=== PATIENT | female | born 1965 | race Caucasian/White ===

== ENCOUNTER → 2023-07-25 08:28 | Outpatient (REF) | payer OTHER, SELFPAY | LOC: HWWDC 08:28 | PROVIDERS: ATTENDING PHYSICIAN Obstetrics & Gynecology Gynecology | DX: Z12.31 Encounter for screening mammogram for malignant neoplasm of breast (principal) | CPT/HCPCS: 77063; 77067 ==

== ENCOUNTER 2024-02-10 11:15 | Emergency (ER) | payer OTHER, SELFPAY ==
[2024-02-10 11:37] VITALS: BP 148/68; BMI 24.9
[2024-02-10 12:00] VITALS: BP 128/65
[2024-02-10 12:02] LABS: % Basophils 0.3 % (0-2); % Eosinophils 1.1 % (0-6); % Immature Granulocytes 0.5 % (0-0.5); % Lymphocytes 16.7 % (20.5-51.1); % Monocytes 5.3 % (1.7-9.3); % Neutrophils 76.1 % (42.2-75.2); Absolute Lymphocytes 0.6 10^3/uL (1.2-3.4); Absolute Monocytes 0.2 10^3/uL (0.1-0.6); Absolute Neutrophils 2.9 10^3/uL (1.4-6.5); Hematocrit 33.5 % (37.0-47.0); Hemoglobin 11.1 g/dL (12.0-16.0); Mean Corp Hgb Conc. 33.1 g/dL (33.0-37.0); Mean Corpuscular Hgb 27.1 pg (27.0-31.0); Mean Corpuscular Volume 81.9 fL (81.0-99.0); Mean Platelet Volume 9.4 fL (7.4-10.4); Nucleated Red Blood Cells % 0 %; Platelet Count 136 10^3/uL (130-400); Red Blood Cell Count 4.09 10^6/uL (4.20-5.40); Red Cell Dist. Width 13.8 % (11.5-14.5); White Blood Cell Count 3.8 10^3/uL (4.8-10.8)
[2024-02-10 12:09] LABS: COVID-19 Antigen Negative (Negative)
[2024-02-10 12:38] LABS: ALT (SGPT) 23 U/L (0-35); AST (SGOT) 31 U/L (14-36); Albumin 4.1 g/dl (3.5-5.0); Alkaline Phosphatase 83 U/L (38-126); Blood Urea Nitrogen 14 mg/dl (7-17); Calcium 9.1 mg/dl (8.4-10.2); Carbon Dioxide 26 mmol/L (22-30); Chloride 96 mmol/L (98-107); Estimated Creatinine Clearance 91 ml/min; Glucose 110 mg/dl (70-99); Potassium 3.9 mmol/L (3.5-5.1); Sodium 137 mmol/L (135-145); Total Bilirubin 0.6 mg/dl (0.2-1.3); Total Protein 6.5 g/dl (6.3-8.2); eGFR > 60.00
[2024-02-10] MEDS: TYLENOL 1000 MG PO (13:05)
[2024-02-10] MEDS: ROCEPHIN 1000 MG IV (13:05)
--- NOTE | 2024-02-10 13:08 | ED.GENMED ---
History of Present Illness
General
Chief Complaint: Breathing Problem
Time Seen by Provider: 02/10/24 11:44
History of Present Illness
History of Present Illness:
58-year-old female with no significant past medical history presents to the emergency department for evaluation of intractable cough and persistent fever for the past 4 to 5 days. Went to urgent care earlier in the day where she was noted to have
bilateral pneumonia and directed to come to the emergency department. She reports shortness of breath but this is not particular worse with exertion. No chest pain or vomiting.
Past History
Past History
ED Past Medical History: Other (Noncontributory)
ED Past Surgical History: Other (Noncontributory)
Patient has exhibited threatening behavior?: No
Social History
Tobacco: Non-smoker
Alcohol: None
Drug: None
Personal:
Living: with family
Family History
Family History: Other (Mother in her 50s no known cause no autopsy performed); Negative Early CAD
Review of Systems
Review of Systems
Allergies reviewed?: Yes
All Other Systems: ROS reviewed and negative except as documented in HPI and ROS
Phy Exam
Physical Exam
Physical Exam:
GEN: Well appearing, NAD, WDWN
HEENT: Oral mucosa moist, no scleral icterus
Cardiac: Tachycardic, regular
Lung: Mildly tachypneic, otherwise clear lungs
MSK: No gross deformity or injuries
Skin: Good color, no pallor or jaundice, no rashes
Neuro: AO x3, moves all extremities freely
Psych: Calm, cooperative
Scores
Heart Failure Risk
Heart Failure Risk Score: Not Applicable
Course
Orders/Labs/Results
Orders:
Orders
02/10/24 11:41
COVID-19 Antigen Urgent
Source: Nasal Swab
Complete Blood Count/With Diff Urgent
Comprehensive Metabolic Panel Urgent
Lactic Acid Q4H
Comment: ON ICE, CANCEL 2ND ORDER IF FIRST LACTIC ACID LEVEL <2
Influenza A+B Rapid Molecular Urgent
ELLA Source: Nasal Swab
Specimen Description:
02/10/24 12:55
Acetaminophen [Tylenol] 1,000 mg PO NOW STA
CefTRIAXone [Rocephin] 1,000 mg IV NOW STA
Abnormal Lab Results
02/10/24
11:41
WBC 3.8 L 10^3/uL
(4.8-10.8)
RBC 4.09 L 10^6/uL
(4.20-5.40)
Hgb 11.1 L g/dL
(12.0-16.0)
Hct 33.5 L %
(37.0-47.0)
Absolute Lymphs (auto) 0.6 L 10^3/uL
(1.2-3.4)
Neutrophils % 76.1 H %
(42.2-75.2)
Lymphocytes % 16.7 L %
(20.5-51.1)
Chloride 96 L mmol/L
(98-107)
Glucose 110 H mg/dl
(70-99)
02/10/24 11:41
02/10/24 11:41
Vital Signs
Initial and Last Documented VS:
Initial Vital Signs
Temp Pulse Resp Pulse Ox
100.4 F H 116 18 95
02/10/24 11:18 02/10/24 11:18 02/10/24 11:18 02/10/24 11:18
Last Documented Vital Signs
Temp Pulse Resp BP Pulse Ox
100.4 F H 112 25 122/66 93
02/10/24 11:18 02/10/24 13:15 02/10/24 13:15 02/10/24 13:14 02/10/24 13:15
MDM/Problems Addressed
MDM/Problems Addressed:
She has mild increased work of breathing however no significant hypoxia. Ambulatory trial was reassuring. Labs are unremarkable. Will start the patient on dual coverage antibiotics as her COVID and flu are negative although leukopenia would
suggest viral etiology.
*Critical Care Note
Total Time (30-74mins, 75-104mins- exclusive of procedures): Not Applicable
ED Attending Note
-
Portions of this chart may have been created with voice recognition software.� Occasional wrong word or��sound alike� substitutions may have occurred due to the inherent limitations of voice recognition software.
Discharge Plan
Departure
Patient Disposition: Home (Routine Discharge)
Date of Disposition: 02/10/24
Time of Disposition: 13:08
Patient with high blood pressure during this ER visit?: No
Discharge Problem:
Bilateral pneumonia
Instructions: Pneumonia, Adult (DC)
Prescriptions:
New
cefdinir 300 mg capsule
300 mg PO BID 4 Days Qty: 8 0RF
doxycycline hyclate 100 mg capsule
100 mg PO BID 5 Days Qty: 10 0RF
No Action
aspirin 81 MG tablet,chewable
81 mg PO DAILY Qty: 20 0RF
rabies vacc,human diploid (PF) [Imovax Rabies Vaccine (PF)] 1 ML recon soln
1 ml IM PER PROTOCOL Qty: 3 0RF
Referrals:
Richi Suarez I., DO [Family Provider] -
Interventions
Interventions:
*Risk Screen - Suicide Last Done: 02/10/24 11:18
*General Assessment Last Done: 02/10/24 11:18
*ED COVID-19 Vaccine History Last Done: 02/10/24 11:18
*Nursing Disposition Last Done: 02/10/24 13:26
ED- Cardiac Assessment Last Done: 02/10/24 11:31
ED- Pulmonary Assessment Last Done: 02/10/24 11:31
Discharge Date and Time
Discharge Date/Time: 02/10/24 13:26
Print Language: CHINESE
[2024-02-10 13:14] VITALS: BP 122/66
== END 2024-02-10 13:26 | disposition home or self-care (01) ==
LOC: EMR 11:15
PROVIDERS: EMERGENCY PHYSICIAN Emergency Medicine; FAMILY PHYSICIAN Internal Medicine
DX: J18.9 Pneumonia, unspecified organism (principal)
CPT/HCPCS: 99283; 80053; 83605; 85025; 87502; 87811

== ENCOUNTER → 2024-07-27 09:05 | Outpatient (REF) | payer OTHER, SELFPAY | LOC: HWWDC 09:05 | PROVIDERS: ATTENDING PHYSICIAN Obstetrics & Gynecology Gynecology; FAMILY PHYSICIAN Family Medicine | DX: Z12.31 Encounter for screening mammogram for malignant neoplasm of breast (principal) | CPT/HCPCS: 77063; 77067 ==